=== PATIENT | female | born 1945 | race Caucasian/White ===

== ENCOUNTER → 2020-07-25 14:56 | Outpatient (BNVA) | payer OTHER, SELFPAY | PROVIDERS: Visit Provider Internal Medicine Cardiovascular Disease ==

== ENCOUNTER → 2021-02-16 13:59 | Outpatient (REF) | payer OTHER, SELFPAY ==
--- NOTE | 2021-02-16 14:03 | CA_ITS ---
Transthoracic Echocardiogram Patient (Last, First, Middle): Liz Ugarte, Gender: Female Date of : 1945 Age: 75 Procedure Date: 02/16/2021 Procedure Type: Transthoracic Echocardiogram Location: OP Height: 170.18 cm Weight: 86.18 kg BSA: 1.98 m2 Heart Rate: bpm BP: 160 / 80 mmHg Transfer Station Attendant: GALEN Whitaker MD: Tay Wbeb MD [employer] Worker: Tay Webb MD Symptoms: I50.20 - Unspecified systolic (congestive) heart failure Study Quality: Fair Conclusions: - 1. Low normal LV systolic function with LVEF of 50-55% with impaired relaxation filling pattern 2. Normal cardiac valvular Doppler 3. Normal RV systolic pressure 4. No pericardial effusion Findings Left Ventricle Normal left ventricular cavity size. There is normal left ventricular wall thickness. The left ventricular systolic function is low normal. The visually estimated ejection fraction is between 50-55%. Spectral Doppler is indicative of an impaired relaxation filling pattern. E/E prime ratio is between 8 and 15 consistent with indeterminate filling pressures. Right Ventricle Normal right ventricular cavity size and systolic function. Atria The left atrium is mildly dilated. There is no evidence of interatrial shunt. The right atrium is normal in size. Aortic Valve The aortic valve structure and function is likely normal. There is no aortic valve stenosis. There is no aortic valve regurgitation. Mitral Valve There is mild anterior and posterior mitral leaflet thickening. There is trace mitral valve regurgitation. There is no mitral valve stenosis. Pulmonic Valve The pulmonic valve was not well visualized. Tricuspid Valve Likely normal tricuspid valve structure and function. There is trace tricuspid valve regurgitation. The right ventricular systolic pressure is normal. The right ventricular systolic pressure is 13 mmHg. Normal right atrial pressure. There is no evidence of pulmonary hypertension. Great Vessels All visible segments of the aorta are normal in size. The pulmonary artery was not well visualized. Venous The inferior vena cava is normal in size and collapses greater than 50% with inspiration. Pericardium/Pleural There is no evidence of pericardial effusion. Prior Study Comparison No significant change compared to prior study dated: 10/04/1999. Measurements 2D Linear Measurements IVSd: 0.91 0.6-0.9/0.6-1.0 cm LVIDd: 4.63 3.9-5.3/4.2-5.9 cm LVIDd Index: 2.34 2.4-3.2/2.2-3.1 cm/m2 LVIDs: 3.36 2.0-3.6 cm LVPWd: 1.00 0.7-1.1 cm Ao Root: 3.10 2.1-3.5 cm LA Diam: 4.20 2.7-3.8/3.0-4.0 cm LAIDs Index: 2.12 1.5-2.3 cm/m2 LV Mass: 186.63 67-162/88-224 g LV Mass Index: 94.26 43-95/49-115 g/m2 LVOT Diam: 2.00 3.0+(-)1.3 cm 2D Systolic Function EF 4C: 52.20 >55% EF 2C: 54.80 >55% EF BiP: 53.40 >55% Mitral Valve MV Pk E: 0.76 MV PK A: 0.98 MV Decel Time: 200.00 E/A: 0.80 E'Lateral: 7.07 E'Medial: 6.09 E/E' Med: 12.50 E/E' Lat: 10.80 PHT: 58.00 MVA PHT: 3.79 Decel Wells: 3.82 Aortic Valve AoV Pk Wander: 1.76 AoV Mn Wander: 1.27 AoV VTI: 0.42 AoV Pk Grad: 12.00 Aov Mn Grad: 7.00 PORSCHE Cont.VTI: 1.86 LVOT LVOT Pk Wander: 0.96 LVOT Mn Wander: 0.69 LVOT VTI: 0.25 LVOT Pk Grad: 4.00 LVOT Mn Grad: 2.00 LVOT Diam: 2.00 LVOT Area: 3.14 Diastolic Function MV Pk E: 0.76 MV Pk A: 0.98 E/A: 0.80 E'Medial: 6.09 E/E' Med: 12.50 E' Laterial: 7.07 E/E' Lat: 10.80 Right Ventricle TAPSE (mm): 1.91 TVS' Wander: 12.90 Tricuspid Valve TR Pk Wander: 1.56 TR Pk Grad: 10.00 RA Press: 3.00 RVSP: 13.00 Great Vessels Aorta Ao Root-2D: 3.10 2.0-3.7 cm Ao Asc: 3.30 2.1-3.4 cm Ao Arch: 2.80 Updated in Other Vendor System with Status of Final Tay Webb MD electronically signed on 02/17/2021 3:01:26 PM with status of Final
== END ==
LOC: HO.CARD 13:59
PROVIDERS: Visit Provider Internal Medicine Cardiovascular Disease
DX: I50.20 Unspecified systolic (congestive) heart failure (principal)
CPT/HCPCS: 93306

== ENCOUNTER → 2021-04-10 15:31 | Outpatient (BNVA) | payer OTHER, SELFPAY | PROVIDERS: Visit Provider Internal Medicine Cardiovascular Disease | DX: I50.20 Unspecified systolic (congestive) heart failure (principal); I48.0 Paroxysmal atrial fibrillation | CPT/HCPCS: 93005 ==

== ENCOUNTER → 2021-10-16 14:32 | Outpatient (BNVA) | payer OTHER, SELFPAY | PROVIDERS: Visit Provider Internal Medicine Cardiovascular Disease | DX: I48.0 Paroxysmal atrial fibrillation (principal); Z86.79 Personal history of other diseases of the circulatory system | CPT/HCPCS: 93005 ==

== ENCOUNTER → 2022-04-04 13:59 | Outpatient (REF) | payer OTHER, SELFPAY ==
--- NOTE | 2022-04-04 14:02 | CA_ITS ---
Transthoracic Echocardiogram Patient (Last, First, Middle): Liz Ugarte, Gender: Female Date of : 1945 Age: 76 Procedure Date: 04/04/2022 Procedure Type: Transthoracic Echocardiogram Location: OP Height: 170.18 cm Weight: 86.18 kg BSA: 1.98 m2 Heart Rate: bpm BP: 140 / 90 mmHg Market Risk Specialist: TO Referring MD: Tay Webb MD Machine Dyer: Tay Webb MD Symptoms: Z86.79 - Personal history of other diseases of the circulatory system Study Quality: Technically Difficult Conclusions: - 1. Technically limited study 2. Normal LV systolic function with LVEF of 55-60% with impaired relaxation filling pattern 3. Limited visualization of cardiac valves with normal cardiac valvular Doppler 4. Normal RV systolic pressure with mildly elevated right ventricular systolic pressure Findings Procedure Information The patient declines contrast. Left Ventricle Normal left ventricular size, thickness, and systolic function. The visually estimated ejection fraction is between 55-60%. Regional wall motion abnormalities can not be excluded due to suboptimal endocardial definition. Spectral Doppler is indicative of an impaired relaxation filling pattern. E/E prime ratio is between 8 and 15 consistent with indeterminate filling pressures. Right Ventricle Normal right ventricular cavity size. There is normal right ventricular systolic function. Atria The left atrium is mildly dilated. There is lipomatous hypertrophy of the interatrial septum. There is no evidence of interatrial shunt. The right atrium was not well visualized. Aortic Valve The aortic valve was not well visualized. There is no aortic valve stenosis. There is no aortic valve regurgitation. Mitral Valve The mitral valve was not well visualized. There is no mitral valve regurgitation. There is no mitral valve stenosis. Pulmonic Valve The pulmonic valve was not well visualized. Tricuspid Valve Likely normal tricuspid valve structure and function. There is trace tricuspid valve regurgitation. The right ventricular systolic pressure is normal. The right ventricular systolic pressure is 27 mmHg. Mildly elevated right atrial pressure. There is no evidence of pulmonary hypertension. Great Vessels All visible segments of the aorta are normal in size. The pulmonary artery was not well visualized. Venous The inferior vena cava is mildly dilated and collapses less than 50% with inspiration. Pericardium/Pleural The pericardium was not well visualized. Measurements 2D Linear Measurements IVSd: 1.02 0.6-0.9/0.6-1.0 cm LVIDd: 4.73 3.9-5.3/4.2-5.9 cm LVIDd Index: 2.39 2.4-3.2/2.2-3.1 cm/m2 LVIDs: 3.38 2.0-3.6 cm LVPWd: 0.90 0.7-1.1 cm LA Diam: 4.00 2.7-3.8/3.0-4.0 cm LAIDs Index: 2.02 1.5-2.3 cm/m2 LV Mass: 195.65 67-162/88-224 g LV Mass Index: 98.81 43-95/49-115 g/m2 LVOT Diam: 2.10 3.0+(-)1.3 cm 2D Systolic Function EF 2C: 51.40 >55% Mitral Valve MV Pk E: 0.81 MV PK A: 0.81 MV Decel Time: 188.00 E/A: 1.00 E'Lateral: 6.09 E'Medial: 7.40 E/E' Med: 11.00 E/E' Lat: 13.40 PHT: 55.00 MVA PHT: 4.00 Decel Milam: 4.32 Aortic Valve AoV Pk Wander: 1.86 AoV Mn Wander: 1.30 AoV VTI: 0.44 AoV Pk Grad: 14.00 Aov Mn Grad: 8.00 PORSCHE Cont.VTI: 1.71 LVOT LVOT Pk Wander: 0.95 LVOT Mn Wander: 0.63 LVOT VTI: 0.22 LVOT Pk Grad: 4.00 LVOT Mn Grad: 2.00 LVOT Diam: 2.10 LVOT Area: 3.46 Diastolic Function MV Pk E: 0.81 MV Pk A: 0.81 E/A: 1.00 E'Medial: 7.40 E/E' Med: 11.00 E' Laterial: 6.09 E/E' Lat: 13.40 Right Ventricle TAPSE (mm): 28.20 TVS' Wander: 11.50 Tricuspid Valve TR Pk Wander: 2.20 TR Pk Grad: 19.00 RA Press: 8.00 RVSP: 27.00 Great Vessels Aorta Ao Asc: 3.40 2.1-3.4 cm Updated in Other Vendor System with Status of Final Tay Webb MD electronically signed on 04/04/2022 4:03:45 PM with status of Final
== END ==
LOC: HO.CARD 13:59
PROVIDERS: PCP Internal Medicine Cardiovascular Disease; Visit Provider Internal Medicine Cardiovascular Disease
DX: Z86.79 Personal history of other diseases of the circulatory system (principal)
CPT/HCPCS: 93306

== ENCOUNTER → 2022-04-16 14:29 | Outpatient (BNVA) | payer OTHER, SELFPAY | PROVIDERS: PCP Family Medicine; Visit Provider Internal Medicine Cardiovascular Disease | DX: I48.0 Paroxysmal atrial fibrillation (principal); Z86.79 Personal history of other diseases of the circulatory system | CPT/HCPCS: 93005 ==

== ENCOUNTER → 2022-10-15 15:36 | Outpatient (BNVA) | payer OTHER, SELFPAY | PROVIDERS: PCP Family Medicine; Visit Provider Internal Medicine Cardiovascular Disease | DX: Z79.899 Other long term (current) drug therapy (principal) | CPT/HCPCS: 93005 ==

== ENCOUNTER 2023-04-15 15:10 | Outpatient (AMB) | payer OTHER, SELFPAY ==
--- NOTE | 2023-04-15 15:21 | MHC.OFFVIS ---
Intake Vital Signs 04/15/23 15:27 Height 5 ft 7 in Weight 214 lb 4.629 oz BMI 33.6 BP 140/72 H Blood Pressure Location Lt brachial Position Sitting Pulse 77 Intake Visit Reasons: 1 yr f/up Intake Note: 1 yr f/up pt its feeling fine Tent Worker Required: No Accompanied by: Self / Same As Patient Allergies No Known Allergies [No Known Allergies*] Allergy (Verified 10/15/22 15:59) Medication List - Last Reconciled 04/15/23 by Tay Webb MD apixaban 5 mg PO BID 90 days carvedilol 6.25 mg PO BID 90 days cholecalciferol (vitamin D3) 25 mcg PO DAILY flecainide 100 mg PO Q12H lisinopril 5 mg PO DAILY 90 days multivitamin 1 tab PO DAILY HPI HPI Comments History of Present Illness Details Liz comes for follow-up. She has not had any major cardiovascular symptoms. However she did undergo mastectomy for breast cancer and had some orthopedic issues. Otherwise she denies any cardiac symptoms. No prolonged palpitation irregular heartbeat. Denies any heart failure symptoms. Denies any bleeding issues or neurologic events. Denies any lightheadedness, syncope. [facility] Medical History HTN (hypertension) Paroxysmal atrial fibrillation History of cardiomyopathy Heart failure with reduced ejection fraction Surgical History Hx of cardiac cath Family History Father No problems noted. Mother No problems noted. Review of Systems Const Denies chills, Denies fatigue, Denies fever(s), Denies frequent falls, Denies weakness, Denies weight gain and Denies weight loss ENT Denies dizziness Card Denies chest pain, Denies leg edema, Denies lightheadedness, Denies palpitations, Denies dyspnea, Denies dyspnea on exertion, Denies orthopnea and Denies other (loss of consciousness) Resp Denies cough, Denies dyspnea and Denies dyspnea on exertion GI Denies hematochezia and Denies change in stool character Musc Denies abnormal gait, Denies muscle weakness, Denies numbness, Denies radiating pain into limb and Denies tingling Neuro Denies abnormal gait, Denies dizziness, Denies frequent falls, Denies numbness, Denies tingling and Denies weakness Endo Denies fatigue and Denies palpitations Physical Exam Vital Signs: Last Vital Signs Pulse 77 04/15/23 15:27 BP 140/72 H 04/15/23 15:27 BMI result Body Mass Index 33.6 Office Procedures EKG Details: EKG shows normal sinus rhythm with nonspecific ST T wave changes [id number], Complete Assessment & Plan Assessment & Plan (1) Paroxysmal atrial fibrillation: Code(s): I48.0 - Paroxysmal atrial fibrillation Plan: Paroxysmal atrial fibrillation with development of cardiomyopathy and heart failure syndrome. Has done well with rhythm control approach will continue pursue rhythm control approach has done well with flecainide therapy. Continue flecainide therapy for rhythm control which she is tolerating well. Continue concomitant AV sheila blocking agent with carvedilol. Continue full oral anticoagulation, currently on apixaban 5 mg b.i.d.. Semi annual renal function test should be pursued. Advised to call me with any new symptoms or rapid heart rate. Avoidance of stimulants was discussed. (2) History of cardiomyopathy: Code(s): Z86.79 - Personal history of other diseases of the circulatory system Plan: Prior history of cardiomyopathy with severe LV systolic dysfunction which normalized with rhythm control approach and neurohormonal modulation with carvedilol and lisinopril. Has not had any heart failure syndrome. Continue current rhythm control approach as well as neurohormonal modulation. Advised to call me with any worsening symptoms. (3) HTN (hypertension): Code(s): I10 - Essential (primary) hypertension Plan: High blood pressure which is currently well optimized advised to monitor blood pressure at home maintain a log. Continue current therapy with carvedilol lisinopril. Goal blood pressure less than 130/84. Low-salt diet was discussed. Increase activity level is recommended. Follow up in the clinic in 6 months for EKG in 1 year with me. Thank you for allowing me to partake in her care Coding Level of Care Code Est Pt Level 4 (00917) Diagnoses Paroxysmal atrial fibrillation I48.0 History of cardiomyopathy Z86.79 HTN (hypertension) I10 CPT Codes EKG - CPT: 07726-[id number], Complete ([id number])
[2023-04-15 15:27] VITALS: BP 140/72; PULSE 77; BMI 33.6
== END 2023-04-15 15:53 | disposition home or self-care (01) ==
PROVIDERS: Visit Provider Internal Medicine Cardiovascular Disease
DX: I48.0 Paroxysmal atrial fibrillation (principal); Z86.79 Personal history of other diseases of the circulatory system; I10 Essential (primary) hypertension
CPT/HCPCS: 93010; 99214

== ENCOUNTER → 2023-04-15 15:10 | Outpatient (BNVA) | payer OTHER, SELFPAY | PROVIDERS: Visit Provider Internal Medicine Cardiovascular Disease | DX: I48.0 Paroxysmal atrial fibrillation (principal); I10 Essential (primary) hypertension; Z86.79 Personal history of other diseases of the circulatory system | CPT/HCPCS: 93005 ==

== ENCOUNTER 2023-11-04 14:57 | Outpatient (AMB) | payer OTHER, SELFPAY ==
[2023-11-04 14:59] VITALS: BP 126/64; PULSE 80; BMI 30.3
--- NOTE | 2023-11-04 14:59 | MHC.OFFVIS ---
Vital Signs 11/04/23 14:59 Height 5 ft 7 in Weight 193 lb 9.054 oz BMI 30.3 BP 126/64 Blood Pressure Location Lt brachial Position Sitting Pulse 80 Intake Visit Reasons: EKG Intake Note: F/U. Pt states she is feeling good. Retail Cashier Associate: Retail Cashier Associate Present Accompanied by: Spouse Allergies No Known Allergies [No Known Allergies*] Allergy (Verified 10/15/22 15:59) Medication List - Last Reconciled 11/04/23 by Tay Webb MD apixaban 5 mg PO BID 90 days carvedilol 6.25 mg PO BID 90 days cholecalciferol (vitamin D3) 25 mcg PO DAILY flecainide 100 mg PO Q12H letrozole 2.5 mg PO DAILY lisinopril 5 mg PO DAILY 90 days multivitamin 1 tab PO DAILY HPI Comments Details: Liz comes for follow-up. She has been doing very well. She has been very energetic. Maintaining her activity without any issues. Denies any orthopnea, PND, leg edema. No prolonged irregular heartbeat or palpitations or fast heart rate. Taking all her medications. Denies any lightheadedness, syncope. No exertional chest pain. Denies any bleeding issues or neurologic events. [facility] Medical History HTN (hypertension) Paroxysmal atrial fibrillation History of cardiomyopathy Heart failure with reduced ejection fraction Surgical History Hx of cardiac cath Family History Father No problems noted. Mother No problems noted. Social History Alcohol intake: current Comment: social Patient Tobacco Use Status: Former Tobacco user Review of Systems Const Denies chills, Denies fatigue, Denies fever(s), Denies weight gain and Denies weight loss Card Denies chest pain, Denies leg edema, Denies lightheadedness, Denies palpitations, Denies dyspnea on exertion and Denies orthopnea Resp Denies cough and Denies dyspnea on exertion GI Reports melena, Denies hematochezia and Denies change in stool character Musc Denies muscle weakness and Denies radiating pain into limb Endo Denies fatigue and Denies palpitations Physical Exam Vital Signs: Last Vital Signs Pulse 80 11/04/23 14:59 BP 126/64 11/04/23 14:59 BMI result Body Mass Index 30.3 Const General: cooperative, comfortable, no acute distress, alert and awake Nutritional Appearance: overweight Orientation/consciousness: patient oriented x3 Limitations: no limitations Neck Neck: Yes trachea midline, Yes supple and Yes no JVD Resp Effort & Inspection: normal respiratory effort Auscultation: clear to auscultation bilaterally Cardio Jugular venous distension: no JVD Palpation: normal PMI Rate: regular rate Rhythm: regular rhythm Heart sounds: S1 normal heart sound present, S2 normal heart sound present, no click, no gallops and no murmurs GI Auscultation: normal bowel sounds Skin General skin exam: no rashes or lesions noted Neuro General: patient oriented x3 and no focal motor deficits Extrem General: Yes no clubbing, cyanosis or edema Office Procedures EKG Details: EKG shows normal sinus rhythm with sinus arrhythmia with normal EKG [id number], Complete Assessment & Plan Assessment & Plan (1) Paroxysmal atrial fibrillation: Code(s): I48.0 - Paroxysmal atrial fibrillation Category: Medical Plan: Paroxysmal atrial fibrillation in the past has remained suppressed with a many years. She is done very well with rhythm control approach will continue aggressively pursue rhythm control approach. Continue flecainide therapy with concomitant beta-shaun therapy. Semi annual EKGs required. Continue full oral anticoagulation, currently on Eliquis 5 mg b.i.d.. Semi annual renal function test is required an annual CBC is required. Will check for the same. Importance of continue medical therapy is recommended. Advised to avoid stimulants. Advised to check her pulse on a regular basis. (2) History of cardiomyopathy: Code(s): Z86.79 - Personal history of other diseases of the circulatory system Category: Medical Plan: Prior history of cardiomyopathy in the setting of atrial fibrillation with heart failure with reduced ejection fraction. The heart failure syndrome as reversed as has the LV systolic function with maintenance of rhythm and neurohormonal modulation. Continue current neurohormonal modulation with carvedilol and lisinopril therapy. No signs or symptoms of heart failure. No indication for diuretic therapy. Continue rhythm control approach as above. Signs and symptoms of heart failure were discussed and she understands them well. Follow-up echocardiogram 6 months time. Will follow up in the clinic in 6 months time, sooner p.r.n.. Thank you for allowing me to partake in her care Orders: Orders CA echo transthoracic complete 6 Months Z86.79 - Personal history of other diseases of the circulatory system Basic Metabolic Panel Today I48.0 - Paroxysmal atrial fibrillation Complete Blood Count no Diff Today I48.0 - Paroxysmal atrial fibrillation Coding Level of Care Code Est Pt Level 4 (66402) Diagnoses Paroxysmal atrial fibrillation I48.0 History of cardiomyopathy Z86.79 CPT Codes EKG - CPT: 69825-[id number], Complete ([id number])
== END 2023-11-04 15:28 | disposition home or self-care (01) ==
PROVIDERS: PCP Physician Assistant Medical; Visit Provider Internal Medicine Cardiovascular Disease
DX: I48.0 Paroxysmal atrial fibrillation (principal); Z86.79 Personal history of other diseases of the circulatory system
CPT/HCPCS: 93010; 99214

== ENCOUNTER → 2023-11-04 14:57 | Outpatient (BNVA) | payer OTHER, SELFPAY | PROVIDERS: PCP Physician Assistant Medical; Visit Provider Internal Medicine Cardiovascular Disease | DX: I48.0 Paroxysmal atrial fibrillation (principal); Z86.79 Personal history of other diseases of the circulatory system; Z79.01 Long term (current) use of anticoagulants; Z79.899 Other long term (current) drug therapy | CPT/HCPCS: 93005 ==

== ENCOUNTER 2024-04-15 14:21 | Outpatient (AMB) | payer OTHER, SELFPAY ==
--- OUTSIDE RECORDS SUMMARY | 2024-04-15 14:23 | XMS_ITS | Continuity of Care Document ---
Author Organization [facility] Adult Address [address] [place] [address]- Care Team Providers Care Replenishment Merchandising Associate Name Role Phone Naila Sparks Primary Care Physician Encounter [facility] Date(s): 03/29/24 - 04/05/24 [facility] [address], [place] [address] Attending Physician: Naila Sparks Referring Physician: Robson Wiley MD Encounter Type: Office Visit Allergies, Adverse Reactions, Alerts No Known Allergies Immunizations Given and Recorded Vaccine Date Status Refusal Reason SARS-CoV-2 (COVID-19) mRNA BNT-162b2 vac 08/06/20 Recorded SARS-CoV-2 (COVID-19) mRNA BNT-162b2 vac 07/16/20 Recorded Medications carvedilol 12.5 mg oral tablet 12.5 mg, 1, tablet, By Mouth, 2 times a day, # 180 tablet, Refills 0, Maintenance, 02/10/18 9:18:09 AM EDT Start Date: 02/10/18 Status: Ordered Quantity: 180.0 Unit: tablet Repeat number: 1 Centrum Adults 1 tablet, By Mouth, Daily, 0 Refills, Maintenance, 02/10/18 9:24:35 AM EDT Start Date: 02/10/18 Status: Ordered Repeat number: 1 Eliquis 5 mg oral tablet 1 tablet = 5 mg, By Mouth, 2 times a day, # 60 tablet, 0 Refills, Maintenance, 02/12/18 8:00:00 AM EDT, Tablet Start Date: 02/12/18 Status: Ordered Quantity: 60.0 Unit: tablet Repeat number: 1 furosemide 20 mg oral tablet 1, capsule, By Mouth, Once, # 1 tablet, Refills 0, Maintenance, 02/10/18 9:23:44 AM EDT Start Date: 02/10/18 Status: Ordered Quantity: 1.0 Unit: tablet Repeat number: 1 letrozole 2.5 mg oral tablet 30 each, 0 Refill(s), 0 Refills, 02/14/23 1:50:00 PM EDT, Partial fill upon patient request if the prescription is for a schedule II opioid drug. Start Date: 02/14/23 Status: Ordered Repeat number: 1 lisinopril 5 mg oral tablet 5 mg, 1, tablet, By Mouth, Daily, # 30 tablet, Refills 0, Maintenance, 02/10/18 9:24:12 AM EDT Start Date: 02/10/18 Status: Ordered Quantity: 30.0 Unit: tablet Repeat number: 1 Vitamin B1 = 100 mg, By Mouth, Daily, 0 Refills, Maintenance, 02/10/18 9:24:56 AM EDT Start Date: 02/10/18 Status: Ordered Repeat number: 1 Problem List Condition Confirmation Course Effective Dates Status H ealth Status Informant Afib Confirmed Active Cardiomyopathy 1 Confirmed Active Edentulous Confirmed Active Former smoker Confirmed Active HFrEF (heart failure with reduced ejection fraction) Confirmed Active HTN (hypertension) Confirmed Active Breast cancer Confirmed Active Obese class I Confirmed Active Osteoarthritis of knee, unilateral Confirmed Active Osteopenia Confirmed Active 1Per [place] cardiology note appears it may have been rate related Procedures Procedure Date Related Diagnosis Body Site Status Cataract Completed Vital Signs Most recent to oldest [Reference Range]: 1 2 3 Height 166 cm (03/29/24 2:43 PM) 166 cm (03/29/24 2:26 PM) 166 cm (03/29/24 2:21 PM) Weight 89.0 kg (03/29/24 2:21 PM) Oxygen Saturation [94-100 %] 99 % (03/29/24 2:21 PM) Pulse Rate [55-90 bpm] 84 bpm (03/29/24 2:21 PM) Body Mass Index [18.5-24.99 kg/m2] 32.3 kg/m2 *>HHI* (03/29/24 2:21 PM) Blood Pressure [90-138/55-84 mm Hg] 132/60mm Hg (03/29/24 2:43 PM) 147/83mm Hg *H* (03/29/24 2:26 PM) 157/82mm Hg *H* (03/29/24 2:21 PM) Blood pressure sites Arm, right (03/29/24 2:26 PM) Arm, left (03/29/24 2:21 PM) Social History Social History Type Response Smoking Status Former smoker, quit more than 30 days ago entered on: 08/15/22 Sex Sex Representation Female (finding) Note * Nancy Auguste MA: PERFORM Event Display: Patient Education/Instruction Authored Date: [id number] Ambulatory Adult Visit Summary [facility] [address], [place] [id number] Name: MAZIN HENNESSY : 1945?? Visit: 03/29/2024 14:10?? Ambulatory Visit Instructions ?? Your Care Team Primary Care Provider Naila Sparks? This Visit Provider Naila Sparks Your Diagnosis Encounter for annual wellness visit (AWV) in Medicare patient Afib Breast cancer Former smoker Osteoarthritis of left knee Vitals Signs Pulse Rate: 84 bpm Height: 166 cm Systolic Blood Pressure: 132 mm Hg Weight: 89 kg Diastolic Blood Pressure: 60 mm Hg Body Mass Index:??32.3 kg/m2??Critical Oxygen Saturation: 99 % Body surface area: 2.03 What to do next Follow-Up Appointments Follow Up with??Naila Sparks When:??04/04/2025 01:30 PM EST Why: wellness Where: [address] [place] [address]- Medications The list below reflects the information in our records and provided by you today along with any changes made during this visit. Please continue your medications until treatment is completed or stopped by your provider. If this is different from the information you have or there are other questions,please contact the prescribing provider. What How Much When Instructions Unchanged apixaban (Eliquis 5 mg oral tablet) 1 tab(s) Oral Twice a day Unchanged Carvedilol (carvedilol 12.5 mg oral tablet) 1 tab(s) Oral Twice a day Unchanged Furosemide (furosemide 20 mg oral tablet) 1 capsule Oral Once Unchanged Letrozole (letrozole 2.5 mg oral tablet) 30 each, 0 Refill(s) ?? Unchanged Lisinopril (lisinopril 5 mg oral tablet) 1 tab(s) Oral Daily Unchanged Multivitamin With Minerals (Centrum Adults) 1 tab(s) Oral Daily Unchanged Thiamine (Vitamin B1) 100 Milligram Oral Daily Medications and Immunizations Administered Medications Given During Visit No medications given during this visit.?? Allergies (NKA means No Known Allergies) NKA Common Emergency Awareness Tips IS IT A STROKE? Act FAST and Check for these signs: FACE Does the face look uneven? ARM Does one arm drift down? SPEECH Does their speech sound strange? TIME Call at any sign of stroke ?? Heart Attack Signs Chest discomfort: Most heart attacks involve discomfort in the center of the chest and lasts more than a few minutes, or goes away and comes back. It can feel like uncomfortable pressure, squeezing, fullness or pain. Discomfort in upper body: Symptoms can include pain or discomfort in one or both arms, back, neck, jaw or stomach. Shortness of breath: With or without discomfort. Other signs: Breaking out in a cold sweat, nausea, or lightheaded. Remember, MINUTES DO MATTER. If you experience any of these heart attack warning signs, call to get immediate medical attention! ?? Smoking can increase your chances of developing chronic health problems and can cause harmful effects to other family members in your house. If you smoke, you are strongly encouraged to quit. Please call [employer] at [phone] or [phone] ([phone]) or log in to [email or web address] for referrals to smoking cessation programs. ?? The National Suicide Prevention Hotline is available 25/11 if you or someone you know needs to find a reason to keep living. By calling 0-403-452-Ethonova (1823) you'll be connected to a skilled, trained counselor at a crisis center in your area. [facility] Health Portal You can view and manage your care through the patient portal or by using a health care fred of your choosing. [employer] is a website that allows you to securely view your medical information including your hospital discharge summary, office visit summaries, medications and follow-up visits. You can also request appointments, renew medications, and request access to your medical information using a health care fred of your choosing, or just ask a question. You can enroll at [email or web address] or register during your next office visit. [facility], in keeping with [facility] guidance, no longer requires face masks for staff, patientsor visitors in most situations. Similiar to time spent indoors at other locations, there is the chance that you were exposed to repiratory viruses during your time with us (such as flu or COVID-19). If you develop symptoms concerning for a viral respiratory infection, please seek testing (and treatment if indicated) from your medical provider or home test kit. ?? Disclaimer: The information provided is of a general nature and is intended to be used in conjunction with the recommendations and advice of your health care practitioner. Every effort has been made to ensure that the information provided is accurate and complete at the time it is provided to you however, as your needs change, or, as new information becomes available, different or additional instructions may be required. ?? If you have questions, please consult with your primary care provider or pharmacist, as appropriate. This information is not intended to serve as substitution for assessment and evaluation by a qualified health care provider. If you do not have a primary care provider, you may find a [facility] provider by calling [facility] [employer] [facility] at [phone]. Patient Care team information Care Team Personnel Name: Naila Sparks Position: [facility] PCO Associate Professional Member Role: PCP Address: [address] [place] [address]- Telecom: Care Team Related Persons Name: LUZ MARIA CAMARGO Name: MAULIK HENNESSY Insurance Providers Guarantor name: NA Health Plan Information #: 1 Payer: BLUE BENEFIT BBA PPO Member Number: [id number] Policy Number: NA Group Number: [id number] Health Plan Information #: 2 Payer: BLUE BENEFIT BBA PPO Member Number: [id number] Policy Number: NA Group Number: [id number]
--- NOTE | 2024-04-15 14:35 | A.OFFVIS_ITS ---
Vital Signs 04/15/24 14:36 Height 5 ft 7 in Weight 196 lb 3.382 oz BMI 30.7 BP 142/80 H Blood Pressure Location Lt brachial Position Sitting Pulse 91 Pulse Source Monitor Intake Visit Reasons: elevated bp Toy Assembler Required: No Paralegal Supervisor: Paralegal Supervisor Present Allergies No Known Allergies [No Known Allergies*] Allergy (Verified 04/15/24 14:40) Medication List - Last Reconciled 04/15/24 by Tonja Costa NP-C apixaban 5 mg PO BID 90 days carvedilol 6.25 mg PO BID 90 days cholecalciferol (vitamin D3) 25 mcg PO DAILY flecainide 100 mg PO Q12H letrozole 2.5 mg PO DAILY lisinopril 5 mg PO DAILY 90 days multivitamin 1 tab PO DAILY HPI HPI elevated bp: Details: Liz is a 78 yr old female with past medical history of hypertension, rate related cardiomyopathy, paroxysmal atrial fibrillation who presents for follow- up. Today she reports that she has been getting elevated blood pressure readings at home. She brought in her cuff to compare to our office readings and it seems that her cuff is reading false high. She has not had any recent symptoms. No chest discomfort at rest or with activity. No shortness of breath, PND, orthopnea or edema. No lightheadedness, presyncope, syncope. She works part- time as a hairdresser. She does have an abrasion and mild swelling of her left lower extremity. She tells me she has taken 2 courses of antibiotics and it currently looks much better but not normal yet. She is compliant with her medications. is present. [facility] Medical History HTN (hypertension) Paroxysmal atrial fibrillation History of cardiomyopathy Heart failure with reduced ejection fraction Surgical History Hx of cardiac cath Family History Father No problems noted. Mother No problems noted. Social History Alcohol intake: current Comment: social Patient Tobacco Use Status: Former Tobacco user Review of Systems Const All systems reviewed & are unremarkable except as noted in HPI and below ENT Denies dizziness Card Denies chest pain, Denies chest pain at rest, Denies chest pain with activity, Denies rapid heart rate, Denies pedal edema, Denies edema, Denies leg edema, Denies lightheadedness, Denies palpitations, Denies dyspnea, Denies dyspnea on exertion and Denies orthopnea Resp Denies cough, Denies dyspnea and Denies dyspnea on exertion GI Denies hematochezia and Denies change in stool character Musc Denies abnormal gait, Denies limited range of motion, Denies muscle cramps, Denies muscle weakness, Denies numbness, Denies radiating pain into limb, Denies stiffness and Denies tingling Neuro Denies abnormal gait, Denies dizziness, Denies numbness and Denies tingling Endo Denies palpitations Physical Exam Vital Signs: Last Vital Signs Pulse 91 04/15/24 14:36 BP 142/80 H 04/15/24 14:36 BMI result Body Mass Index 30.7 Const General: cooperative, healthy appearing, comfortable and no acute distress Orientation/consciousness: patient oriented x3 Neck Neck: Yes normal visual inspection Resp Effort & Inspection: normal respiratory effort Auscultation: clear to auscultation bilaterally, no rales, no rhonchi and no wheezes Cardio Jugular venous distension: no JVD Rate: regular rate Rhythm: regular rhythm Heart sounds: S1 normal heart sound present, S2 normal heart sound present, no murmurs and no rubs Neuro General: patient oriented x3 Extrem Other: abrasion to left almonte with mild swelling of leg in that area, down ankle and into foot General: Yes no pedal edema and No calf tenderness Psych Appearance: grossly normal Mental Status: mental status grossly normal Speech and movement: Normal speech and movement present Office Procedures EKG Details: Today, read by me, normal sinus rhythm, low-voltage QRS, rate 91, QTC 447 millisecond [id number], Complete Assessment & Plan Assessment & Plan (1) HTN (hypertension): Code(s): I10 - Essential (primary) hypertension Category: Medical Plan: Patient came for sooner appointment as she had concerns her home blood pressures were running high. Blood pressure in the office today is mildly elevated. When compared with her home automated BP system it is found that her device reads much higher than manual readings. Reviewed this with her. She will go and buy a new machine and continue to monitor blood pressures. She will call if she has ongoing concerns. (2) Paroxysmal atrial fibrillation: Code(s): I48.0 - Paroxysmal atrial fibrillation Category: Medical Plan: History of paroxysmal atrial fibrillation. Currently suppressed with flecainide and carvedilol. EKG done today showing normal sinus rhythm, rate 91. She is on Eliquis for anticoagulation. No bleeding issues reported. She has an abrasion that is slowly healing on her left almonte. - she has been to urgent care for this and will go back if she has ongoing concerns. No bleeding noted at this time. No med changes made. Labs are followed by her PCP. Recommend twice yearly CBC, BMP. (3) History of cardiomyopathy: Code(s): Z86.79 - Personal history of other diseases of the circulatory system Category: Medical Plan: Prior history of cardiomyopathy in the setting of atrial fibrillation. She has done well with rhythm control. No signs and symptoms of heart failure on exam. Last echo done 04/04/2022 shows EF 55-60%, normal valves. Continue carvedilol an d lisinopril for neurohormonal modulation. Plan Time spent on chart review, documentation, interview and assessment Coding Level of Care Code Est Pt Level 4 (04685) Complex EM visit Add On G2211 Diagnoses HTN (hypertension) I10 Paroxysmal atrial fibrillation I48.0 History of cardiomyopathy Z86.79 CPT Codes EKG - CPT: 08348-[id number], Complete ([id number]) Time Spent (min) 32
[2024-04-15 14:36] VITALS: BP 142/80; PULSE 91; BMI 30.7
== END 2024-04-15 15:28 | disposition home or self-care (01) ==
PROVIDERS: PCP Physician Assistant Medical; Visit Provider Nurse Practitioner Family
DX: I10 Essential (primary) hypertension (principal); I48.0 Paroxysmal atrial fibrillation; Z86.79 Personal history of other diseases of the circulatory system
CPT/HCPCS: 93010; 99214

== ENCOUNTER → 2024-04-15 14:21 | Outpatient (BNVA) | payer OTHER, SELFPAY | PROVIDERS: PCP Physician Assistant Medical; Visit Provider Nurse Practitioner Family | DX: I10 Essential (primary) hypertension (principal); I42.9 Cardiomyopathy, unspecified; I48.0 Paroxysmal atrial fibrillation; Z86.79 Personal history of other diseases of the circulatory system | CPT/HCPCS: 93005 ==

== ENCOUNTER → 2024-05-04 14:55 | Outpatient (REF) | payer OTHER, SELFPAY ==
--- OUTSIDE RECORDS SUMMARY | 2024-05-04 14:58 | XMS_ITS | Continuity of Care Document ---
Author Organization [facility] Adult Address [address] [place] [address]- Care Team Providers Care Dermatology Physician Name Role Phone Naila Sparks Primary Care Physician Encounter [facility] [id number] Date(s): 04/23/24 - 04/30/24 [facility] Adult [facility] [place] [address]- Attending Physician: Not on Staff, Attending MD Referring Physician: Naila Sparks Encounter Type: Office Visit Allergies, Adverse Reactions, [...] Date: 02/10/18 Status: Ordered Repeat number: 1 doxycycline hyclate 100 mg oral tablet 1 tablet = 100 mg, By Mouth, 2 times a day, for 10 days, # 20 tablet, 0 Refills, Acute 05/03/24 9:10:00 AM EST, 04/23/24 9:10:00 AM EST, Tablet, [id number], Partial fill upon patientrequest if the prescription is for a schedule II opioid drug., 166, cm, 04/23/24 9:00:00 EST, Height, 91.3, kg, 04/23/24 8:56:00 EST, Dry Weight Start Date: 04/23/24 Stop Date: 05/03/24 Status: Ordered Quantity: 20.0 Unit: tablet Repeat number: 1 Indication: Localized swelling, mass and lump, left lower limb Eliquis 5 mg oral tablet 1 tablet [...] unilateral Confirmed Active Osteopenia Confirmed Active 1Per [place] cardiology note appears it may have been rate related Vital Signs Most recent to oldest [Reference Range]: 1 2 Height 166 cm (04/23/24 9:00 AM) 166 cm (04/23/24 8:56 AM) Weight 91.3 kg (04/23/24 8:56 AM) Oxygen Saturation [94-100 %] 98 % (04/23/24 8:56 AM) Pulse Rate [55-90 bpm] 80 bpm (04/23/24 8:56 AM) Body Mass Index [18.5-24.99 kg/m2] 33.13 kg/m2 *>HHI* (04/23/24 8:56 AM) Blood Pressure [90-138/55-84 mm Hg] 133/ 67mm Hg (04/23/24 9:00 AM) 70/42mm Hg *L* (04/23/24 8:56 AM) Mode of Delivery (Oxygen) Room air (04/23/24 8:56 AM) Blood pressure sites Arm, left (04/23/24 9:00 AM) Arm, left (04/23/24 8:56 AM) Dry Weight 91.3 kg (04/23/24 8:56 AM) Weight Obtained Via Standing scale (04/23/24 8:56 AM) Dry Weight Obtained Via Standing scale (04/23/24 8:56 AM) Social History Social History Type Response Smoking Status Former smoker, quit more than 30 days ago entered on: 08/15/22 Sex Sex Representation Female (finding) Patient Care team information Care Team Personnel Name: Naila Sparks Position: [facility] PCO Associate Professional Member Role: PCP Address: [address] [place] [address] Telecom: Care Team Related Persons Name: LUZ MARIA CAMARGO Name: MAULIK HENNESSY Insurance Providers Guarantor name: MAZIN HENNESSY Health Plan Information #: 1 Payer: BLUE BEN[employer]IT [employer] PPO Member Number: [id number] Policy Number: NA Group Number: [id number] Health Plan Information #: 2 Payer: [employer]IT [employer]BA PPO Member Number: [id number] Policy Number: NA Group Number: [id number]
--- OUTSIDE RECORDS SUMMARY | 2024-05-04 14:58 | XMS_ITS | Continuity of Care Document ---
Author Organization [facility] Address [address] [facility] [place] [address]- Care Team Providers Care Bioinformatics Associate Name Role Phone Naila Sparks Primary Care Physician Encounter 04/23/24 - 04/30/24 [facility] [address], [address] [place] [address]- Attending Physician: Naila Sparks Admitting Physician: Naila Sparks Referring Physician: Naila Sparks Encounter Type: OutPatient One Time Allergies, Adverse Reactions, Alerts No Known Allergies [...] AM EST, 04/23/24 9:10:00 AM EST, Tablet, [id number], Partial fill upon patientrequest if the prescription [...] knee, unilateral Confirmed Active Osteopenia Confirmed Active [address] [place] [address] cardiology note appears it may have been rate related Results Radiology Reports * Exam Date Time Procedure Performing Provider Status 04/23/24 10:28 AM Tibia/Fibula 2 Views Left John Alcantara (Verified) Notes: (Tibia/Fibula 2 Views Left) Reason For Exam: Pain RESULT: Tibia/Fibula 2 Views Left Examination: Left tibia and fibula performed on 04/23/2024. History: Reason: Pain Findings: Frontal and lateral views left tibia and fibula are submitted. No fractures or dislocations are demonstrated. A sclerotic cortically based lesion within the medial aspect of the distal tibial metaphysis measuring 4.3 cm likely represents a healed fibrous cortical defect. The soft tissues are unremarkable. IMPRESSION: There is no osseous abnormality. WSN: [id number] Ordering Physician: Naila Rodrigues Dictated By: Maulik Chery MD Dictated Date/Time: 04/23/24 3:02 pm Reviewed By: Maulik Chery MD Signed By: Maulik Chery MD Signed Date/Time: 04/23/24 3:02 pm Transcribed By: DELPHINE Transcribed Date/Time: 04/23/24 2:59 pm Social History Social History Type Response Smoking Status Former smoker, quit more than 30 days ago entered on: 08/15/22 Sex Sex Representation Female (finding) Patient Care team information Care Team Personnel Name: Naila Sparks Position: [facility] PCO Associate Professional Member Role: PCP Address: [address] [place] [address]- Telecom: Care Team Related Persons Name: LUZ MARIA CAMARGO Name: MAULIK HENNESSY Insurance Providers Guarantor name: MAZIN HENNESSY Health Plan Information #: 1 Payer: [employer] PPO Member Number: [id number] Policy Number: NA Group Number: [id number] Health Plan Information #: 2 Payer: [employer] PPO Member Number: [id number] Policy Number: NA Group Number: [id number]
--- NOTE | 2024-05-04 14:59 | CA_ITS ---
Transthoracic Echocardiogram Patient (Last, First, Middle): Liz Ugarte, Gender: Female Date of : 1945 Age: 78 Procedure Date: 05/04/2024 Procedure Type: Transthoracic Echocardiogram Location: OP Height: 170.18 cm Weight: 88.91 kg BSA: 2.00 m2 Heart Rate: bpm BP: 130 / 80 mmHg Media Analyst: AGRLAND Referring MD: Tay Webb MD Consumer Loan Specialist: Tay Webb MD Symptoms: Z86.79 - Personal history of other diseases of the circulatory system Study Quality: Fair ECG Rhythm: Sinus Conclusions: - 1. Normal LV ejection fraction 55-60% with impaired relaxation filling pattern 2. Mild aortic stenosis 3. Normal RV systolic pressure with mildly elevated right atrial pressures 4. No gross pericardial effusion Findings Left Ventricle Normal left ventricular size, thickness, and systolic function. The visually estimated ejection fraction is between 55-60%. Spectral Doppler is indicative of an impaired relaxation filling pattern. E/E prime ratio is between 8 and 15 consistent with indeterminate filling pressures. Wall Motion Rest Echo Findings The basal inferior, mid inferior, basal inferoseptal, and basal inferolateral segments are hypokinetic. All other scored wall segments showed normal motion. Right Ventricle Normal right ventricular cavity size. There is normal right ventricular systolic function. Atria The left atrium is likely dilated. There is no evidence of interatrial shunt. The right atrium is likely dilated. Aortic Valve The aortic valve was not well visualized. There is mild calcification of the aortic valve. There is mild aortic valve stenosis. The peak aortic velocity is 2.14 m/s with a calculated peak gradient of 18 mmHg. The mean gradient is 10 mmHg. The aortic valve area is 1.98 cm2. There is no aortic valve regurgitation. Mitral Valve The mitral valve was not well visualized. There is mild anterior mitral leaflet thickening. There is mild mitral annular calcification. There is trace mitral valve regurgitation. There is no mitral valve stenosis. Pulmonic Valve The pulmonic valve is likely normal. Tricuspid Valve Normal tricuspid valve structure. There is mild tricuspid valve regurgitation. The right ventricular systolic pressure is normal. The right ventricular systolic pressure is 28 mmHg. Mildly elevated right atrial pressure. There is no evidence of pulmonary hypertension. Great Vessels The pulmonary artery was not well visualized. There is no dilatation of the ascending aorta measuring 3.50 cm. Small plaque is seen in the sino tubular ridge. Venous The inferior vena cava is mildly dilated and collapses less than 50% with inspiration. Pericardium/Pleural There is no evidence of pericardial effusion. Prior Study Comparison Changes noted compared to prior study dated: 04/04/2022. mild aortic stenosis is noted Measurements 2D Linear Measurements IVSd: 0.87 0.6-0.9/0.6-1.0 cm LVIDd: 5.19 3.9-5.3/4.2-5.9 cm LVIDd Index: 2.60 2.4-3.2/2.2-3.1 cm/m2 LVIDs: 3.89 2.0-3.6 cm LVPWd: 0.97 0.7-1.1 cm LA Diam: 4.00 2.7-3.8/3.0-4.0 cm LAIDs Index: 2.00 1.5-2.3 cm/m2 LV Mass: 215.32 67-162/88-224 g LV Mass Index: 107.66 43-95/49-115 g/m2 LVOT Diam: 2.20 3.0+(-)1.3 cm 2D Systolic Function EF 4C: 51.70 >55% EF 2C: 58.90 >55% EF BiP: 55.30 >55% Mitral Valve MV Pk E: 1.00 MV PK A: 0.97 MV Decel Time: 169.00 E/A: 1.00 E'Lateral: 6.85 E'Medial: 6.96 E/E' Med: 14.40 E/E' Lat: 14.60 PHT: 50.00 MVA PHT: 4.40 Decel Webster: 5.92 Aortic Valve AoV Pk Wander: 2.14 AoV Mn Wander: 1.52 AoV VTI: 0.50 AoV Pk Grad: 18.00 Aov Mn Grad: 10.00 PORSCHE Cont.VTI: 1.98 LVOT LVOT Pk Wander: 1.09 LVOT Mn Wander: 0.77 LVOT VTI: 0.26 LVOT Pk Grad: 5.00 LVOT Mn Grad: 3.00 LVOT Diam: 2.20 LVOT Area: 3.80 Diastolic Function MV Pk E: 1.00 MV Pk A: 0.97 E/A: 1.00 E'Medial: 6.96 E/E' Med: 14.40 E' Laterial: 6.85 E/E' Lat: 14.60 Right Ventricle TAPSE (mm): 28.10 TVS' Wander: 13.20 Tricuspid Valve TR Pk Wander: 2.21 TR Pk Grad: 20.00 RA Press: 8.00 RVSP: 28.00 Great Vessels Aorta Sinus of Valsalva: 3.32 2.0-3.5 cm Ao Asc: 3.50 2.1-3.4 cm Updated in Other Vendor System with Status of Final Tay Webb MD electronically signed on 05/04/2024 5:34:03 PM with status of Final
== END ==
LOC: HO.CARD 14:55
PROVIDERS: PCP Physician Assistant Medical; Visit Provider Internal Medicine Cardiovascular Disease
DX: Z86.79 Personal history of other diseases of the circulatory system (principal)
CPT/HCPCS: 93306

== ENCOUNTER → 2024-05-04 14:59 | Outpatient (BNV) | payer OTHER, SELFPAY | PROVIDERS: PCP Physician Assistant Medical; Visit Provider Internal Medicine Cardiovascular Disease | DX: I35.0 Nonrheumatic aortic (valve) stenosis (principal); I36.1 Nonrheumatic tricuspid (valve) insufficiency; I35.8 Other nonrheumatic aortic valve disorders; I34.81 Nonrheumatic mitral (valve) annulus calcification | CPT/HCPCS: 93306 ==

== ENCOUNTER 2024-10-04 13:32 | Outpatient (AMB) | payer OTHER, SELFPAY ==
[2024-10-04 13:47] VITALS: BP 120/70; PULSE 90; BMI 30.4
--- NOTE | 2024-10-04 13:47 | MHC.OFFVIS ---
Vital Signs 10/04/24 13:47 Height 5 ft 7 in Weight 194 lb 0.108 oz BMI 30.4 BP 120/70 Blood Pressure Location Lt brachial Position Sitting Pulse 90 Intake Visit Reasons: 6mo F/U Intake Note: 6 month follow-up with ekg feeling ok Radiator Mechanic Required: No Allergies No Known Allergies [No Known Allergies*] Allergy (Verified 04/15/24 14:40) Medication List - Last Reconciled 10/04/24 by Tay Webb MD apixaban 5 mg PO BID 90 days carvedilol 6.25 mg PO BID 90 days cholecalciferol (vitamin D3) 25 mcg PO DAILY flecainide 100 mg PO Q12H letrozole 2.5 mg PO DAILY lisinopril 5 mg PO DAILY 90 days multivitamin 1 tab PO DAILY HPI Comments Details: Liz comes for follow-up. Overall she has been doing well from cardiac perspective. He has no clear cardiovascular symptoms. Denies any prolonged irregular heartbeat or palpitations. No episodes of atrial fibrillation. Taking her medications well. Blood pressures been well controlled. Denies any orthopnea, PND, leg edema. No lightheadedness, syncope. No bleeding issues or neurologic events. [facility] Medical History HTN (hypertension) Paroxysmal atrial fibrillation History of cardiomyopathy Heart failure with reduced ejection fraction Surgical History Hx of cardiac cath Family History Father No problems noted. Mother No problems noted. Social History Alcohol intake: current Comment: social Patient Tobacco Use Status: Former Tobacco user Review of Systems Const Denies chills, Denies fatigue, Denies fever(s), Denies frequent falls, Denies weakness, Denies weight gain and Denies weight loss ENT Denies dizziness Card Denies chest pain, Denies leg edema, Denies lightheadedness, Denies palpitations, Denies dyspnea, Denies dyspnea on exertion, Denies orthopnea and Denies other (loss of consciousness) Resp Denies cough, Denies dyspnea and Denies dyspnea on exertion GI Denies hematochezia and Denies change in stool character Musc Denies abnormal gait, Denies muscle weakness, Denies numbness, Denies radiating pain into limb and Denies tingling Neuro Denies abnormal gait, Denies dizziness, Denies frequent falls, Denies numbness, Denies tingling and Denies weakness Endo Denies fatigue and Denies palpitations Physical Exam Vital Signs: Last Vital Signs Pulse 90 10/04/24 13:47 BP 120/70 10/04/24 13:47 BMI result Body Mass Index 30.4 Const General: cooperative, comfortable, no acute distress, alert and awake Nutritional Appearance: overweight Orientation/consciousness: patient oriented x3 Limitations: no limitations Neck Neck: Yes trachea midline, Yes supple and Yes no JVD Resp Effort & Inspection: normal respiratory effort Auscultation: clear to auscultation bilaterally Cardio Jugular venous distension: no JVD Palpation: normal PMI Rate: regular rate Rhythm: regular rhythm Heart sounds: S1 normal heart sound present, S2 normal heart sound present, no click, no gallops and no murmurs GI Auscultation: normal bowel sounds Skin General skin exam: no rashes or lesions noted Neuro General: patient oriented x3 and no focal motor deficits Extrem General: Yes no clubbing, cyanosis or edema Office Procedures EKG Details: EKG shows normal sinus rhythm with low-voltage QRS with poor R-wave progression most likely due to lead placement 13030-[id number], Complete Assessment & Plan Assessment & Plan (1) Paroxysmal atrial fibrillation: Code(s): I48.0 - Paroxysmal atrial fibrillation Category: Medical Plan: Paroxysmal atrial fibrillation has done extremely well with rhythm control approach and will pursue rhythm control approach. Continue current flecainide therapy. Continue concomitant carvedilol therapy. Continue full oral anticoagulation, currently on Eliquis 5 mg b.i.d.. Semi annual renal function test should be pursued. (2) History of cardiomyopathy: Code(s): Z86.79 - Personal history of other diseases of the circulatory system Category: Medical Plan: History of cardiomyopathy and heart failure in setting of atrial fibrillation. Has done extremely well with rhythm control approach with improvement in LV ejection fraction as well as resolution of heart failure syndrome. Continue current rhythm control approach. Continue current neurohormonal modulation with lisinopril and carvedilol therapy. Avoidance of stimulants was discussed. She understands agrees. Signs and symptoms of heart failure were discussed. Will follow up in the clinic in 6 months time, sooner p.r.n.. Thank you for allowing me to partake in her care Coding Level of Care Code Est Pt Level 4 (30905) Complex EM visit Add On G2211 Diagnoses Paroxysmal atrial fibrillation I48.0 History of cardiomyopathy Z86.79 CPT Codes EKG - CPT: 56172-[id number], Complete ([id number])
--- OUTSIDE RECORDS SUMMARY | 2024-10-04 14:40 | XMS_ITS | Clinical Summary ---
Author Organization [facility] Address [address] [place] [address] Care Team Providers Care Ndt Inspector Name Role Phone Unknown Primary Care Provider [phone] Allergies No known active allergies Medications Multiple Vitamins-Minerals (CENTRUM SILVER 50+WOMEN PO) Take 1 tablet by mouth daily. Active apixaban (ELIQUIS) 5 MG tabletIndications :Atrial fibrillation with rapid ventricular response (HCC) Take 1 tablet (5 mg total) by mouth every 12 (twelve) hours around the clock. 60 tablet 8 Active lisinopril (PRINIVIL,ZeSTRIL ) 2.5 MG tabletIndications :Atrial fibrillation with rapid ventricular response (HCC) Take 1 tablet (2.5 mg total) by mouth daily. 30 tablet 8 Active carvedilol (COREG) 6.25 MG tabletIndications :Atrial fibrillation with rapid ventricular response (HCC) Take 1 tablet (6.25 mg total) by mouth 2 (two) times a day. 60 tablet 8 Active thiamine (VITAMIN B-1) 100 MG tabletIndications :Atrial fibrillation with rapid ventricular response (HCC) Take 2 tablets (200 mg total) by mouth daily. 60 tablet 8 Active Active Problems Problem Noted Date Diagnosed Date Atrial fibrillation with rapid ventricular respo nse 12/31/2017 Essential hypertension 12/31/2017 Cardiomegaly 12/31/2017 Atrial fibrillation with RVR 12/31/2017 Social History Tobacco Use Types Packs/Day Years Used Date Smoking Tobacco: Former Cigarettes 1 50 1 963 - 2013 Smokeless Tobacco: Former Comments:uses a vaporizer Alcohol Use Standard Drinks/Week Comments Yes 7 (1 standard drink = 0.6 oz pur e alcohol) Comments No Sex and Gender Information Value Date Recorded Sex Assigned at Not on file Legal Sex Female 12:52 PM EDT Gender Identity Not on file Sexual Orientation Not on file Last Filed Vital Signs Vital Sign Reading Time Taken Comments Blood Pressure 124/95 01/02/2018 7:59 AM EDT Pulse 83 01/02/2018 7:59 AM EDT Temperature 36.3 ??C (97.4 ??F) 01/02/2018 7:59 AM ED T Respiratory Rate 18 01/02/2018 7:59 AM EDT Oxygen Saturation 93% 01/02/2018 7:22 AM EDT Inhaled Oxygen Concentration - - Weight 99.2 kg (218 lb 11.1 oz) 01/02/2018 6:00 AM EDT Height 170.2 cm (5' 7 ) 12/31/2017 7:00 PM EDT Body Mass Index 34.25 12/31/2017 7:00 PM EDT Plan of Treatment Health Maintenance Due Date Last Done Comments Hepatitis C Virus Screening 1945 DTaP/Tdap/Td Vaccines (1 - Tdap) 1965 Lung Cancer Screening (LDCT) 1996 Pneumococcal Vaccines 50+ (1 of 1 - PCV) 1996 Zoster (Shingles) Vaccine (1 of 2) 1996 DXA Bone Density (Females,Ag es 65 and older) 12/01/2011 RSV Vaccine 60 years and old er and Patients (1 - 1-dose 75+ series) 2021 COVID-19 Vaccine (1 - 2023-2 5 season) 2024 Influenza Vaccine 12/03/2024 Hepatitis B Vaccines Aged Out No long er eligible based on patient's age to complete this topic Insurance [facility] PPO Advance Directives * Full Code (Latest Code Status on File) Date Activated Date Inactivated Comments 12/31/2017 3:39 PM Care Teams Ndt Inspector Relationship Specialty Start Date End Date Unknown Unknow Provider Address PCP - General 12/31/17
== END 2024-10-04 14:09 | disposition home or self-care (01) ==
LOC: HO.HCS 13:32
PROVIDERS: PCP Physician Assistant Medical; Visit Provider Internal Medicine Cardiovascular Disease
DX: I48.0 Paroxysmal atrial fibrillation (principal); Z86.79 Personal history of other diseases of the circulatory system
CPT/HCPCS: 93010; 99214

== ENCOUNTER → 2024-10-04 13:32 | Outpatient (BNVA) | payer OTHER, SELFPAY | PROVIDERS: PCP Physician Assistant Medical; Visit Provider Internal Medicine Cardiovascular Disease | DX: I48.0 Paroxysmal atrial fibrillation (principal); I11.0 Hypertensive heart disease with heart failure; I50.20 Unspecified systolic (congestive) heart failure; Z87.891 Personal history of nicotine dependence; Z86.79 Personal history of other diseases of the circulatory system | CPT/HCPCS: 93005 ==